=== PATIENT | female | born 1965 | race Caucasian/White ===

== ENCOUNTER → 2016-07-02 | Outpatient (CLI) | payer OTHER ==
--- NOTE | 2016-07-03 14:51 | MM ---
Reason for exam: screening (asymptomatic). Last mammogram was performed 1 year and 6 months ago. History: Patient is postmenopausal. Family history of breast cancer in paternal aunt at age 56. Physical Findings: A clinical breast exam by your physician is recommended on an annual basis and results should be correlated with mammographic findings. MG Screening Mammo w CAD Bilateral CC and MLO view(s) were taken. Prior study comparison: January 14, 2015, bilateral MG screening mammo w CAD. No significant changes when compared with prior studies. ASSESSMENT: Negative, BI-RAD 1 RECOMMENDATION: Routine screening mammogram of both breasts in 1 year.
== END | disposition home or self-care (01) ==
LOC: RADMAMWWP 14:30
PROVIDERS: ATTEND Family Medicine
DX: Z12.31 Encounter for screening mammogram for malignant neoplasm of breast (principal)

== ENCOUNTER → 2016-07-02 | Outpatient (CLI) | payer OTHER ==
[2016-07-02 13:22] LABS: Blood Urea Nitrogen 9 mg/dL (7-17); Non-African American GFR(MDRD) >60 (>60 ml/min/1.73 sqM)
--- NOTE | 2016-07-02 14:33 | CT ---
EXAMINATION TYPE: CT soft tissue neck w con DATE OF EXAM: 07/02/2016 2:19 PM COMPARISON: NONE HISTORY: Left sided neck mass x 3weeks CT DLP: 470.30 mGycm Automated exposure control for dose reduction was used. CONTRAST: CT scan of the neck is performed following with IV Contrast, patient injected with 100 mL of Omnipaqu e 300. Axial images are obtained, coronal and sagittal reformatted images are reviewed. FINDINGS: Airway: No gross abnormality seen. Parotid/submandibular glands: There is a 1.7 cm heterogeneous enhancing mass within the posterior ma rgin of the left parotid gland. No pathologic adjacent adenopathy Carotid/Vascular Structures: Mild atherosclerotic changes of the right moderate changes on the left a pproximately 60% stenosis. Osseous Structures: Degenerative change of the spine at levels C5-C7. Other: Thyroid enhances normally. Lung apices are clear. Oropharynx and nasopharynx are symmetric. Vi sualized intraorbital and intracranial structures are unremarkable. Shotty adenopathy throughout the soft tissues of neck. Vocal cords have a normal appearance. IMPRESSION: 1. There is a 1.7 cm heterogeneous enhancing mass posterior margin left parotid gland. Differential i nclude pleomorphic adenoma. Malignancy not excluded. 2. Atherosclerotic changes greater on the left with regard to the carotid artery. Consider follow-up ultrasound.
== END | disposition home or self-care (01) ==
LOC: RADCTMAIN 12:21
PROVIDERS: ATTEND Family Medicine
DX: I65.22 Occlusion and stenosis of left carotid artery (principal); R22.1 Localized swelling, mass and lump, neck
CPT/HCPCS: 82565; 84520; 70491; 36415; Q9967

== ENCOUNTER 2016-07-27 08:52 | Day surgery (SDC) | payer OTHER ==
[~2016-07-27 08:52] MED LIST: ALPRAZolam 0.5 MG TAB PO ONE; SODIUM BICARB 4% 5 ML VIAL (0.48 MEQ/ML) MISCELLANE PRN
[2016-07-27 10:04] VITALS: RESP 16; TEMP 98.1
[2016-07-27 10:48] VITALS: BP 151/88; PULSE 96
--- NOTE | 2016-07-27 11:48 | US ---
Ultrasound guided FNA left parotid mass CLINICAL HISTORY: Left parotid mass FINDINGS: The procedure was explained to the patient. The risks, complications, benefits and alternatives were discussed and any questions were answered. Informed consent was obtained. Patient was placed supin e on the ultrasound table and prepped and draped in the usual sterile fashion. Utilizing a 25 gauge needle, five passes were made into the left parotid mass. Patient was stable throughout the procedure. Pathology is pending. All elements of maximal barrier technique were utilized. IMPRESSION: 1. Successful ultrasound guided FNA left parotid mass
== END 2016-07-27 10:51 | disposition home or self-care (01) ==
LOC: RADPROMAIN 08:52
DX: R22.1 Localized swelling, mass and lump, neck (principal)
CPT/HCPCS: 10022; 76942; 88173; 88305

== ENCOUNTER → 2017-12-28 | Outpatient (CLI) | payer OTHER ==
[2017-12-28 16:50] LABS: Blood Urea Nitrogen 12 mg/dL (7-17)
--- NOTE | 2017-12-28 19:20 | CT ---
EXAMINATION TYPE: CT abdomen pelvis w con DATE OF EXAM: 12/28/2017 COMPARISON: 10/01/2015 HISTORY: RLQ pain CT DLP: 939.7 mGycm Automated exposure control for dose reduction was used. TECHNIQUE: Helical acquisition of images was performed from the lung bases through the pelvis. CONTRAST: Performed with Oral Contrast and with IV Contrast, patient injected with 100 mL of Isovue 3 00. FINDINGS: LUNG BASES: No significant abnormality is appreciated. LIVER/GB: No significant abnormality is appreciated. PANCREAS: No significant abnormality is seen. SPLEEN: No significant abnormality is seen. ADRENALS: No significant abnormality is seen. KIDNEYS: No significant abnormality is seen. FREE AIR: No free air is visualized. RETROPERITONEAL ADENOPATHY: None visualized REPRODUCTIVE ORGANS: No significant abnormality is seen URINARY BLADDER: No significant abnormality is seen. PELVIC ADENOPATHY: None visualized. OSSEOUS STRUCTURES: No significant abnormality is seen. BOWEL: No significant abnormality is seen. OTHER: Vasculature is unremarkable. Anterior abdominal wall musculature is intact. IMPRESSION: NO ACUTE PROCESS.
== END | disposition home or self-care (01) ==
LOC: RADCTMAIN 16:04
PROVIDERS: ATTEND Family Medicine
DX: R10.32 Left lower quadrant pain (principal); Z88.0 Allergy status to penicillin; Z88.1 Allergy status to other antibiotic agents; Z88.2 Allergy status to sulfonamides; Z88.3 Allergy status to other anti-infective agents; Z88.5 Allergy status to narcotic agent; Z88.8 Allergy status to other drugs, medicaments and biological substances
CPT/HCPCS: 82565; 84520; 74177; 36415; Q9967

== ENCOUNTER 2018-02-03 08:52 | Day surgery (SDC) | payer OTHER ==
[2018-02-01 15:34] VITALS: BMI 28.5
[~2018-02-03 08:52] MED LIST changes: -ALPRAZolam 0.5 MG TAB PO ONE; +LACTATED RINGERS 1,000 ML IV SCH; -SODIUM BICARB 4% 5 ML VIAL (0.48 MEQ/ML) MISCELLANE PRN
[2018-02-03 09:09] VITALS: TEMP 97.5
[2018-02-03] MEDS ORDERED: LIDOCAINE 1% 20 ML VIAL (10MG/ML) FOR IV START INTRADERMA ONE (09:11)
[2018-02-03] MEDS ORDERED: LACTATED RINGERS 1,000 ML IV ONE (09:12)
[2018-02-03] MEDS ORDERED: ONDANSETRON 4 MG/2 ML VIAL IVP ONE (09:15)
[2018-02-03 09:16] LABS: Glucose,Whole Blood 126 mg/dL (75-99)
[2018-02-03] MEDS ORDERED: PROPOFOL 10 MG/ML 20 ML VIAL IV ONE (10:04)
[2018-02-03] MEDS ORDERED: LIDOCAINE 1% INJ 10MG/ML (20 ML MDV) ONE (10:04)
[2018-02-03 10:19] VITALS: RESP 16
--- NOTE | 2018-02-03 10:20 | P.PCN ---
Date of Procedure: 02/03/18 Procedure(s) Performed: BRIEF HISTORY: Patient is a 52-year-old, pleasant, white female, scheduled for an upper endoscopy as a part of evaluation of epigastric pain for the last 1 minute duration. She has associated with nausea vomiting. She was started on Prilosec 20 mg daily with no help.. PROCEDURE PERFORMED: Esophagogastroduodenoscopy with biopsy. PREOPERATIVE DIAGNOSIS: chronic epigastric pain, nausea vomiting of one month duration. IV sedation per anesthesia. PROCEDURE: After informed consent was obtained, the patient was brought into the endoscopy unit. IV sedation was administered by Anesthesia under continuous monitoring. Initially the Olympus GIF-140 video endoscope was inserted into the mouth. Esophagus intubated without any difficulty. It was gradually advanced into the stomach and duodenum and carefully examined. The bulb and the second part of the duodenum appeared normal. The scope at this time was withdrawn to the stomach, adequately insufflated with air, and upon careful examination, mucosa of the antrum, had mild gastritis and biopsies were done from this area. body, cardia and the fundus appeared normal. The scope was then withdrawn into the esophagus. The GE junction was located at 39 cm from the incisors. The esophagus appeared normal. There were no erosions or ulcerations seen, biopsies were done from the distal esophagus and the patient tolerated the procedure well. IMPRESSION: 1. Mild antral gastritis. 2. No evidence of esophagitis or peptic ulcer disease. RECOMMENDATIONS: The findings of this examination were discussed with the patient as well as her family. She was advised to follow with the biopsy results. She will meantime she was advised to increase the Prilosec to 20 mg twice daily before meals and follow antireflux measures..
[2018-02-03 10:31] VITALS: BP 118/79; PULSE 68
== END 2018-02-03 11:24 | disposition home or self-care (01) ==
LOC: ORWHC2ENDO 08:52
PROVIDERS: ATTEND Internal Medicine Gastroenterology
DX: K29.50 Unspecified chronic gastritis without bleeding (principal); B96.81 Helicobacter pylori [H. pylori] as the cause of diseases classified elsewhere; K21.0 Gastro-esophageal reflux disease with esophagitis; J44.9 Chronic obstructive pulmonary disease, unspecified; M79.7 Fibromyalgia; Z79.899 Other long term (current) drug therapy; Z72.0 Tobacco use; Z88.5 Allergy status to narcotic agent; Z88.0 Allergy status to penicillin; Z88.2 Allergy status to sulfonamides; Z88.8 Allergy status to other drugs, medicaments and biological substances; Z88.1 Allergy status to other antibiotic agents; Z91.040 Latex allergy status; Z86.73 Personal history of transient ischemic attack (TIA), and cerebral infarction without residual deficits
CPT/HCPCS: 88305; 43239; J2405; J2001; J2704

== ENCOUNTER → 2018-02-07 | Outpatient (CLI) | payer OTHER ==
--- NOTE | 2018-02-07 17:50 | FL ---
EXAMINATION TYPE: FL barium enema w air contrast DATE OF EXAM: 02/07/2018 COMPARISON: NONE HISTORY: Constipation weight loss TECHNIQUE: A double air contrast barium enema study is performed. FINDINGS: Fire Hose Curer view of the abdomen shows overall non-obstructive bowel gas pattern. No persistent suspicious filling defects are evident. Air and contrast refluxed to appears to be the cecum. There is moderate residual postevacuation. Fluoroscopy time 3.29 minutes Images: 18. IMPRESSION: 1. No suspicious changes within the colon.
== END ==
LOC: RADFLMAIN 07:37
PROVIDERS: ATTEND Family Medicine
DX: K59.00 Constipation, unspecified (principal); R10.84 Generalized abdominal pain; Z88.5 Allergy status to narcotic agent; Z88.0 Allergy status to penicillin; Z88.2 Allergy status to sulfonamides; Z88.8 Allergy status to other drugs, medicaments and biological substances; Z88.1 Allergy status to other antibiotic agents; Z91.040 Latex allergy status
CPT/HCPCS: 74280

== ENCOUNTER 2018-06-02 10:29 | Inpatient (IN) | payer OTHER ==
[2018-06-02] MEDS ORDERED: VANCOMYCIN IV PER PHARMACY 1 EACH MISC MISCELLANE PRN (11:07)
[2018-06-02] MEDS ORDERED: CEFEPIME 2 GM in SODIUM CHLORIDE 0.9% 50 ML IVPB STA (11:12)
[2018-06-02] MEDS ORDERED: NALOXONE 0.4 MG/ML 1 ML VIAL IV PRN (11:27)
--- NOTE | 2018-06-02 11:27 | ED ---
Extremity Problem HPI - General Chief complaint: Extremity Problem,Nontraumatic Stated complaint: wound left great toe Time Seen by Provider: 06/02/18 10:41 Source: patient, RN notes reviewed Mode of arrival: ambulatory Limitations: no limitations - History of Present Illness Initial comments: 52-year-old female sent emergency Department chief complaint of left foot infection. Patient states that she's been dealing with this for a while. Patient has been going to the wound center and had it debrided once by Dr. Stanley. Patient was evaluated this morning he was found to have leukocytosis , increased swelling and discoloration. Patient was sent for admission and surgical evaluation. She is a known diabetic since 1998. Patient states her blood sugars have been labile. Patient reports no fevers or chills. She does admit to increased pain. Patient states she had x-ray which showed no evidence of osteomyelitis. - Related Data Home Medications Medication Instructions Recorded Confirmed Cyclobenzaprine [Flexeril] 10 mg PO TID PRN 08/21/14 06/02/18 Furosemide [Lasix] 40 mg PO DAILY 08/21/14 06/02/18 traZODone HCL [Desyrel] 50 mg PO HS PRN 08/21/14 06/02/18 Omeprazole [PriLOSEC] 20 mg PO AC-BRKFST 09/27/15 06/02/18 Albuterol Inhaler [Ventolin Hfa 1 - 2 puff INHALATION RT-Q6H PRN 02/01/18 Inhaler] Beclomethasone Dipropionate [Qvar 1 puff INHALATION RT-BID 02/01/18 06/02/18 40 mcg Redihaler] Ibuprofen 800 mg PO TID PRN 02/01/18 06/02/18 busPIRone HCl [Buspar] 5 mg PO TID 02/01/18 06/02/18 rOPINIRole HCL [Requip] 0.25 mg PO HS 02/01/18 06/02/18 risperiDONE [RisperDAL] 2 mg PO DAILY 02/01/18 06/02/18 Allergies Allergy/AdvReac Type Severity Reaction Status Date / Time atorvastatin [From Lipitor] Allergy Unknown Itching, Verified 06/02/18 09:50 Hives, Upset Stomach erythromycin base Allergy Wheezing Verified 06/02/18 09:50 latex Allergy Hives, Red Verified 06/02/18 09:50 Skin, Infections morphine Allergy Swelling, Verified 06/02/18 09:50 Red skin Penicillins Allergy Rash/Hives Verified 06/02/18 09:50 prednisone Allergy Swelling Verified 06/02/18 09:50 of Throat, Hives, Swollen Eyes Sulfa (Sulfonamide Allergy Swelling Verified 06/02/18 09:50 Antibiotics) of throat, Hives Review of Systems ROS Statement: Those systems with pertinent positive or pertinent negative responses have been documented in the HPI. ROS Other: All systems not noted in ROS Statement are negative. 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 History of Any Multi-Drug Resistant Organisms: None Reported Past Surgical History: Appendectomy, Section, Cholecystectomy, Hysterectomy Additional Past Surgical History / Comment(s): spleenectomy, parotid gland removed (tumor). Past Anesthesia/Blood Transfusion Reactions: Motion Sickness, Postoperative Nausea & Vomiting (PONV) Additional Past Anesthesia/Blood Transfusion Reaction / Comment(s): adopted Past Psychological History: No Psychological Hx Reported, Anxiety, Bipolar, Depression Smoking Status: Current some day smoker Past Alcohol Use History: Occasional Past Drug Use History: Marijuana - Past Family History Mother Family Medical History: Cancer Additional Family Medical History / Comment(s): RECTAL-COLON CANCER, UTERINE CANCER Father Family Medical History: Unable to Obtain Additional Family Medical History / Comment(s): adopted Sister(s) Family Medical History: Cancer Additional Family Medical History / Comment(s): HALF SISTER- LEUKEMIA AT 5 YRS OLD General Exam Limitations: no limitations General appearance: alert, in no apparent distress Head exam: Present: atraumatic, normocephalic, normal inspection Eye exam: Present: normal appearance, PERRL, EOMI. Absent: scleral icterus, conjunctival injection, periorbital swelling Respiratory exam: Present: normal lung sounds bilaterally. Absent: respiratory distress, wheezes, rales, rhonchi, stridor Cardiovascular Exam: Present: regular rate, normal rhythm, normal heart sounds. Absent: systolic murmur, diastolic murmur, rubs, gallop, clicks Extremities exam: Present: other (Left foot first digit there is tissue that is eschar, necrotic proximal to the nail moderate swelling and tenderness with palpation pulses are faint but confirmed with Doppler dorsal pedis and posterior tibialis) Skin exam: Present: warm, dry Course Vital Signs 06/02/18 10:37 Temperature 98.6 F Pulse Rate 84 Respiratory 18 Rate Blood Pressure 164/98 O2 Sat by Pulse 94 L Oximetry Medical Decision Making - Medical Decision Making 52-year-old female presented for toe infection. Patiently admitted for necrotic diabetic foot ulcer. She was placed on cefepime and vancomycin as she has ALLERGY to penicillin products. Patient has a leukocytosis at 20,000, lactic acid and blood cultures were added. Disposition Clinical Impression: Diabetic ulcer of toe, Leukocytosis Disposition: ADMITTED IP TO THIS HOSP Condition: Stable Referrals: Mohamud Galvez MD [Primary Care Provider] - 1-2 days
[2018-06-02] MEDS: ONDANSETRON 4 MG/2 ML VIAL IVP PRN (12:05)
[2018-06-02] MEDS: HYDROcodone/APAP 5-325MG 1 EACH TAB PO PRN ×3 (12:09→20:16)
[2018-06-02] MEDS: VANCOMYCIN 1,750 MG in SODIUM CHLORIDE 0.9% 500 ML 500 ML IVPB ONE ×2 (13:08→22:39)
[2018-06-02] MEDS: INSULIN ASPART 100 UNIT/ML 1 ML 10 ML VIAL SQ SCH ×3 (15:50→22:36)
[2018-06-02] MEDS ORDERED: CYCLOBENZAPRINE 10 MG TAB PO PRN (16:34)
[2018-06-02] MEDS ORDERED: INSULN ASP PRT/INSULIN ASPART 100 UNIT/ML 10 ML VIAL SQ SCH (17:30)
[2018-06-02 18:42] LABS: Glucose,Whole Blood 177 mg/dL (75-99)
[2018-06-02] MEDS: FLUTICASONE 44 MCG INHALER INHALATION SCH (19:20)
[2018-06-02 22:08] LABS: Glucose,Whole Blood 85 mg/dL (75-99)
[2018-06-02 22:09] LABS: Glucose,Whole Blood 85 mg/dL (75-99)
[2018-06-02 22:10] LABS: Glucose,Whole Blood 85 mg/dL (75-99)
[2018-06-02 22:13] LABS: Glucose,Whole Blood 85 mg/dL (75-99)
[2018-06-02 22:15] LABS: Glucose,Whole Blood 85 mg/dL (75-99)
[2018-06-02 22:17] LABS: Glucose,Whole Blood 85 mg/dL (75-99)
[2018-06-02 22:18] LABS: Glucose,Whole Blood 85 mg/dL (75-99)
[2018-06-02] MEDS: VANCOMYCIN 1,500 MG in SODIUM CHLORIDE 0.9% 250 ML IVPB SCH (22:43)
[2018-06-02] MEDS: IBUPROFEN 800 MG TAB PO PRN (22:43)
[2018-06-02] MEDS: traZODone HCL 50 MG TAB PO PRN (22:49)
[2018-06-02] MEDS: busPIRone HCl 5 MG TAB PO SCH (23:21)
[2018-06-03] MEDS: VANCOMYCIN 1,500 MG in SODIUM CHLORIDE 0.9% 250 ML IVPB SCH ×3 (06:15→21:02)
[2018-06-03] MEDS: HYDROcodone/APAP 5-325MG 1 EACH TAB PO PRN ×4 (06:20→21:06)
[2018-06-03] MEDS: ONDANSETRON 4 MG/2 ML VIAL IVP PRN ×2 (06:20→17:32)
[2018-06-03] MEDS: FLUTICASONE 44 MCG INHALER INHALATION SCH ×2 (07:24→19:16)
[2018-06-03] MEDS: ALBUTEROL NEBULIZED 2.5 MG/3 ML INHALATION PRN ×2 (07:27→19:16)
[2018-06-03] MEDS ORDERED: INSULN ASP PRT/INSULIN ASPART 100 UNIT/ML 10 ML VIAL SQ SCH (07:30)
[2018-06-03] MEDS: PANTOPRAZOLE 40 MG TABLET PO SCH (08:56)
[2018-06-03] MEDS: FUROSEMIDE 40 MG TAB PO SCH (08:56)
[2018-06-03] MEDS: INSULIN ASPART 100 UNIT/ML 1 ML 10 ML VIAL SQ SCH ×4 (08:56→21:04)
[2018-06-03] MEDS: risperiDONE 2 MG TAB PO SCH (08:56)
[2018-06-03] MEDS: ATORVASTATIN 80 MG TAB PO SCH (08:56)
[2018-06-03] MEDS: busPIRone HCl 5 MG TAB PO SCH ×3 (09:41→21:03)
[2018-06-03 11:02] VITALS: BMI 31.1
[2018-06-03 12:52] LABS: Glucose,Whole Blood 217 mg/dL (75-99)
[2018-06-03] MEDS: clonazePAM 0.5 MG TAB PO PRN (17:28)
[2018-06-03 17:42] LABS: Glucose,Whole Blood 149 mg/dL (75-99)
[2018-06-03] MEDS ORDERED: VANCOMYCIN TROUGH DUE 1 EACH MISC MISCELLANE ONE (19:00)
[2018-06-03] MEDS: traZODone HCL 50 MG TAB PO PRN (21:03)
[2018-06-04 00:49] LABS: Glucose,Whole Blood 137 mg/dL (75-99)
[2018-06-04 00:49] LABS: Glucose,Whole Blood 211 mg/dL (75-99)
[2018-06-04] MEDS: VANCOMYCIN 1,500 MG in SODIUM CHLORIDE 0.9% 250 ML IVPB SCH ×2 (04:53→13:17)
[2018-06-04] MEDS: HYDROcodone/APAP 5-325MG 1 EACH TAB PO PRN ×3 (04:57→20:35)
[2018-06-04 07:55] LABS: Glucose,Whole Blood 180 mg/dL (75-99)
[2018-06-04] MEDS: INSULIN ASPART 100 UNIT/ML 1 ML 10 ML VIAL SQ SCH ×4 (08:13→22:35)
[2018-06-04] MEDS: FUROSEMIDE 40 MG TAB PO SCH (08:14)
[2018-06-04] MEDS: ATORVASTATIN 80 MG TAB PO SCH (08:14)
[2018-06-04] MEDS: busPIRone HCl 5 MG TAB PO SCH ×3 (08:14→20:32)
[2018-06-04] MEDS: PANTOPRAZOLE 40 MG TABLET PO SCH (08:14)
[2018-06-04] MEDS: risperiDONE 2 MG TAB PO SCH (08:15)
[2018-06-04 08:44] LABS: Anion Gap 4 mmol/L; Blood Urea Nitrogen 11 mg/dL (7-17); Calcium 8.6 mg/dL (8.4-10.2); Carbon Dioxide 33 mmol/L (22-30); Chloride 104 mmol/L (98-107); Glucose 174 mg/dL (74-99); Potassium 4.7 mmol/L (3.5-5.1); Sodium 141 mmol/L (137-145)
[2018-06-04 08:51] LABS: Basophils # (A) 0.1 k/uL (0-0.2); Basophils % (A) 1 %; Eosinophils # (A) 0.5 k/uL (0-0.7); Eosinophils % (A) 2 %; HCT 37.3 % (34.0-46.0); Hypochromasia Slight; Lymphocytes % (A) 34 %; MCH 28.2 pg (25.0-35.0); MCHC 31.2 g/dL (31.0-37.0); MCV 90.5 fL (80.0-100.0); Mean Platelet Volume 7.6; Monocytes # (A) 1.4 k/uL (0-1.0); Monocytes % (A) 7 %; Neutrophils # (A) 9.8 k/uL (1.3-7.7); Neutrophils % (A) 54 %; Platelet Count 404 k/uL (150-450); RBC 4.12 m/uL (3.80-5.40); RDW 13.9 % (11.5-15.5); WBC 18.3 k/uL (3.8-10.6)
[2018-06-04] MEDS: ONDANSETRON 4 MG/2 ML VIAL IVP PRN (09:09)
[2018-06-04 09:11] LABS: Lymphocytes # (A) 6.2 k/uL (1.0-4.8)
[2018-06-04 09:12] LABS: HGB 11.6 gm/dL (11.4-16.0)
[2018-06-04] MEDS: clonazePAM 0.5 MG TAB PO PRN ×2 (09:16→17:00)
--- NOTE | 2018-06-04 10:04 | P.GSCN ---
History of Present Illness Consult date: 06/04/18 Reason for Consult: Diabetic ulcer left great toe Requesting physician: Mohamud Galvez History of present illness: This is a 52-year-old diabetic who continues to smoke in spite of numerous counseling sessions to the contrary. For about the last week she has had progressive ulceration of the left great toe. She denies fever or chills. Review of Systems All systems: negative - Constitutional Denies fever, Denies weight loss - EENT Eyes: denies blurred vision Ears, nose, mouth and throat: Denies dysphagia - Cardiovascular Reports decreased exercise tolerance, Reports dyspnea on exertion, Denies chest pain, Denies orthopnea, Denies paroxysmal nocturnal dyspnea, Denies shortness of breath - Respiratory Reports cough, Denies hemoptysis - Gastrointestinal Reports as per HPI - Genitourinary Genitourinary: Denies dysuria, Denies hematuria - Integumentary Denies rash, Denies unusual bruising - Neurological Neurologic Comment(s): Diabetic neuropathy Denies headaches, Denies syncope - Hematologic/Lymphatic Denies easy bleeding, Denies easy bruising - Allergic/Immunologic Denies anaphylaxis, Denies angioedema, Denies urticaria Past Medical History Past Medical History: COPD, CVA/TIA, Diabetes Mellitus, Fibromyalgia, GERD/ Reflux, Osteoarthritis (OA) Additional Past Medical History / Comment(s): Recent H pylori/gastritis, IDDM type II, current L foot great toe diabetic ulcer, bilateral feet/hand neuropathy , chronic back pain, RLS, bilateral carpal tunnel syndrome, chronic bronchitis, TIAs x 3, hiatal hernia. History of Any Multi-Drug Resistant Organisms: None Reported Past Surgical History: Appendectomy, Section, Cholecystectomy, Hysterectomy Additional Past Surgical History / Comment(s): L great toe debridements, spleenectomy d/t hemangioma, L paratid gland tumor-removed, EGD/colonoscopy, bilateral cataract removals/lens implants. Past Anesthesia/Blood Transfusion Reactions: Postoperative Nausea & Vomiting ( PONV) Additional Past Anesthesia/Blood Transfusion Reaction / Comm: Pt is adopted Smoking Status: Current every day smoker - Past Family History Mother Family Medical History: Cancer Additional Family Medical History / Comment(s): RECTAL-COLON CANCER, UTERINE CANCER Father Family Medical History: Unable to Obtain Additional Family Medical History / Comment(s): Pt is adopted Sister(s) Family Medical History: Cancer Additional Family Medical History / Comment(s): HALF SISTER- LEUKEMIA AT 5 YRS OLD Medications and Allergies Home Medications Medication Instructions Recorded Confirmed Type Cyclobenzaprine [Flexeril] 10 mg PO TID PRN 08/21/14 06/02/18 History Furosemide [Lasix] 40 mg PO DAILY 08/21/14 06/02/18 History traZODone HCL [Desyrel] 50 mg PO HS PRN 08/21/14 06/02/18 History Omeprazole [PriLOSEC] 20 mg PO AC-BRKFST 09/27/15 06/02/18 History Albuterol Inhaler [Ventolin Hfa 1 - 2 puff INHALATION RT-Q6H PRN 02/01/18 History Inhaler] Beclomethasone Dipropionate [Qvar 1 puff INHALATION RT-BID 02/01/18 06/02/18 History 40 mcg Redihaler] Ibuprofen 800 mg PO TID PRN 02/01/18 06/02/18 History busPIRone HCl [Buspar] 5 mg PO TID 02/01/18 06/02/18 History rOPINIRole HCL [Requip] 0.25 mg PO HS 02/01/18 06/02/18 History risperiDONE [RisperDAL] 2 mg PO DAILY 02/01/18 06/02/18 History Atorvastatin [Lipitor] 80 mg PO DAILY 06/02/18 06/02/18 History Insulin NPL/Insulin Lispro 85 unit SQ AC-SUPPER 06/02/18 06/02/18 History [humaLOG MIX 75-25 VIAL] Insulin NPL/Insulin Lispro 170 unit SQ QAM 06/02/18 06/02/18 History [humaLOG MIX 75-25 VIAL] Allergies Allergy/AdvReac Type Severity Reaction Status Date / Time atorvastatin [From Lipitor] Allergy Unknown Itching, Verified 06/02/18 09:50 Hives, Upset Stomach erythromycin base Allergy Wheezing Verified 06/02/18 09:50 latex Allergy Hives, Red Verified 06/02/18 09:50 Skin, Infections morphine Allergy Swelling, Verified 06/02/18 09:50 Red skin Penicillins Allergy Rash/Hives Verified 06/02/18 09:50 prednisone Allergy Swelling Verified 06/02/18 09:50 of Throat, Hives, Swollen Eyes Sulfa (Sulfonamide Allergy Swelling Verified 06/02/18 09:50 Antibiotics) of throat, Hives Surgical - Exam Osteopathic Statement: *. No significant issues noted on an osteopathic structural exam other than those noted in the History and Physical/Consult. Vital Signs Temp Pulse Resp BP Pulse Ox 98.6 F 84 18 164/98 94 L 06/02/18 10:37 06/02/18 10:37 06/02/18 10:37 06/02/18 10:37 06/02/18 10:37 - General well developed, well nourished, no distress - Eyes normal ocular movement, no icteric - ENT no hearing loss, no congestion - Neck no masses, trachea midline - Respiratory normal expansion, normal respiratory effort bilateral: rales - Cardiovascular Rhythm: regular - Abdomen Abdomen: soft, non tender, no guarding, no rigid, no rebound - Integumentary Contiguous ulceration on the dorsum of the left great toe. It encompasses the dorsum lateral and medial aspects of the toe for a full dimension of about 1.5 x 3.5 cm. no rash, no abnormal pigmentation - Neurologic no disoriented, no combative - Musculoskeletal normal gait, normal posture - Psychiatric oriented to time, oriented to person, oriented to place, speech is normal, memory intact Patient has bounding bilateral posterior tibial pulses Results - Labs 06/04/18 08:11 06/04/18 08:11 Abnormal Lab Results - Last 24 Hours (Table) 06/03/18 06/03/18 06/03/18 Range/Units 07:22 12:29 17:21 WBC (3.8-10.6) k/uL Neutrophils # (1.3-7.7) k/uL Lymphocytes # (1.0-4.8) k/uL Monocytes # (0-1.0) k/uL Carbon Dioxide (22-30) mmol/L Creatinine (0.52-1.04) mg/dL Glucose (74-99) mg/dL POC Glucose (mg/dL) 137 H 217 H 149 H (75-99) mg/dL 06/03/18 06/04/18 06/04/18 Range/Units 20:43 07:08 08:11 WBC (3.8-10.6) k/uL Neutrophils # (1.3-7.7) k/uL Lymphocytes # (1.0-4.8) k/uL Monocytes # (0-1.0) k/uL Carbon Dioxide 33 H (22-30) mmol/L Creatinine 0.45 L (0.52-1.04) mg/dL Glucose 174 H (74-99) mg/dL POC Glucose (mg/dL) 211 H 180 H (75-99) mg/dL 06/04/18 Range/Units 08:11 WBC 18.3 H (3.8-10.6) k/uL Neutrophils # 9.8 H (1.3-7.7) k/uL Lymphocytes # 6.2 H (1.0-4.8) k/uL Monocytes # 1.4 H (0-1.0) k/uL Carbon Dioxide (22-30) mmol/L Creatinine (0.52-1.04) mg/dL Glucose (74-99) mg/dL POC Glucose (mg/dL) (75-99) mg/dL Microbiology - Last 24 Hours (Table) 06/02/18 11:54 Blood Culture - Preliminary Blood No Growth after 24 hours Diabetes panel 06/04/18 Range/Units 08:11 Sodium 141 (137-145) mmol/L Potassium 4.7 (3.5-5.1) mmol/L Chloride 104 (98-107) mmol/L Carbon Dioxide 33 H (22-30) mmol/L BUN 11 (7-17) mg/dL Creatinine 0.45 L (0.52-1.04) mg/dL Glucose 174 H (74-99) mg/dL Calcium 8.6 (8.4-10.2) mg/dL Calcium panel 06/04/18 Range/Units 08:11 Calcium 8.6 (8.4-10.2) mg/dL Pituitary panel 06/04/18 Range/Units 08:11 Sodium 141 (137-145) mmol/L Potassium 4.7 (3.5-5.1) mmol/L Chloride 104 (98-107) mmol/L Carbon Dioxide 33 H (22-30) mmol/L BUN 11 (7-17) mg/dL Creatinine 0.45 L (0.52-1.04) mg/dL Glucose 174 H (74-99) mg/dL Calcium 8.6 (8.4-10.2) mg/dL Adrenal panel 06/04/18 Range/Units 08:11 Sodium 141 (137-145) mmol/L Potassium 4.7 (3.5-5.1) mmol/L Chloride 104 (98-107) mmol/L Carbon Dioxide 33 H (22-30) mmol/L BUN 11 (7-17) mg/dL Creatinine 0.45 L (0.52-1.04) mg/dL Glucose 174 H (74-99) mg/dL Calcium 8.6 (8.4-10.2) mg/dL Assessment and Plan (1) Diabetic ulcer of left foot associated with diabetes mellitus due to underlying condition, with fat layer exposed Current Visit: Yes Status: Acute Code(s): E08.621 - DIABETES MELLITUS DUE TO UNDERLYING CONDITION W FOOT ULCER; L97.522 - NON-PRS CHRONIC ULCER OTH PRT LEFT FOOT W FAT LAYER EXPOSED SNOMED Code(s): 118268855 Plan: I discussed in detail with the patient the current options. For now I would recommend we simply protect it and possibly use some protective absorptive silver. We will allow the area to define itself since it is, at this time, a dry intact scab. There is a little discoloration of the toe otherwise. I discussed the potential for loss of the toe or even the foot without proper tension. I will follow her as an outpatient in the wound center. I will defer antibiotics to internal medicine. Once the toe was declared itself we will decide whether to continue with ongoing wound therapy or to consider amputation of the toe itself. Even with pulses we will get Doppler studies. It is unlikely however that there is any vascular intervention to be entertained. I again discussed with her the severe ramifications of continuing to ignore her need for risk factor modification.
[2018-06-04] MEDS: FLUTICASONE 44 MCG INHALER INHALATION SCH ×2 (10:29→21:38)
[2018-06-04 10:35] LABS: ALT 39 U/L (9-52); AST 21 U/L (14-36); Albumin 3.3 g/dL (3.5-5.0); Alkaline Phosphatase 73 U/L (38-126); Total Bilirubin 0.4 mg/dL (0.2-1.3); Total Protein 5.9 g/dL (6.3-8.2)
--- NOTE | 2018-06-04 10:41 | XR ---
EXAMINATION TYPE: XR chest 2V DATE OF EXAM: 06/04/2018 HISTORY: SOB. REFERENCE: Previous study dated 08/21/2014. FINDINGS: There is some atelectasis at the right lung base. There is atelectasis or infiltrate at the left lung base. The heart is not enlarged. I could not exclude a tiny left-sided effusion. IMPRESSION: 1. BIBASILAR AIRSPACE DISEASE, WORSE ON THE LEFT THAN THE RIGHT. 2. I COULD NOT EXCLUDE A SMALL LEFT EFFUSION.
[2018-06-04 12:06] LABS: Glucose,Whole Blood 274 mg/dL (75-99)
[2018-06-04] MEDS: IBUPROFEN 800 MG TAB PO PRN ×2 (13:50→20:32)
--- NOTE | 2018-06-04 16:02 | HP ---
HISTORY AND PHYSICAL CHIEF COMPLAINT: Redness, pain, swelling and infection in the left great toe. HISTORY OF PRESENT ILLNESS: This is another admission for this 52-year-old white female, diabetic. She is very noncompliant. Sugars are not in control. She started to have pain, swelling and then developed infection in the left great toe and came to the emergency room. There is question whether or not there is involvement in bone or joint. REVIEW OF SYSTEMS: She has had some discomfort. Otherwise, she has had no problems of late. She has had no change in vision or hearing, shortness of breath, cough, hemoptysis, chest pain, palpitations, heart disease, orthopnea, PND, abdominal pain, nausea, vomiting, hematemesis, melena, hematochezia, jaundice, hepatitis, pancreatitis, renal failure, hematuria, dysuria, etc. Past medical history, family history and personal and social history is unremarkable except for her diabetic history and hypertension. ALLERGIES: ERYTHROMYCIN, LIPITOR, SULFA, LATEX, MORPHINE, PENICILLIN. CURRENT MEDICATIONS: Atorvastatin 80 mg h.s., Risperdal 2 mg once a day, omeprazole 20 mg once a day, MiraLAX powder, Lasix 40 mg once a day, aspirin 325 once a day, cyclobenzaprine 10 mg t.i.d. p.r.n., Motrin 800 mg q.i.d. p.r.n., ropinirole 0.25 h.s., buspirone 5 mg t.i.d. p.r.n., bupropion 150 mg twice a day, Qvar 40 one puff twice a day, Ventolin HFA 2 puffs q.i.d. p.r.n., trazodone 50 mg for sleep, Fiorinal p.r.n. headache, Reglan 10 mg 4 times a day, lansoprazole 30 mg twice a day, Klonopin 0.5 t.i.d. p.r.n., Vicodin 10 q.4h p.r.n., metformin 500 mg twice a day, lisinopril 40 once a day, Humalog 75/25 170 units in the morning and 85 at night, albuterol MDI, Lomotil p.r.n., and vitamin D. The remainder of her history is unremarkable. She does smoke. She does not drink. PHYSICAL EXAM: Blood pressure 130/80, pulse 70, respirations 14, she is afebrile. In general she appeared to be well developed, well nourished, no acute distress. Skin color is normal. Skin is warm, dry. Lymph nodes not enlarged. Head, ears, eyes, nose, mouth, and throat were normal. Neck veins not distended. Thyroid is not enlarged. Chest is clear. Cardiac exam is normal. The. Abdomen is soft, nontender without any masses or visceromegaly. Extremities are normal except for the left great toe where there is a cellulitis. There is no keila gangrene. Pulses in the legs were diminished. Neurologically she is intact. She is admitted to the hospital. DIAGNOSES: 1. Cellulitis of the left great toe. 2. Rule out osteomyelitis. 3. Probable small-vessel disease related to diabetes. 4. Rule out peripheral vascular occlusive disease. 5. Uncontrolled diabetes mellitus. PLAN: 1. Bed rest. 2. IV fluids. 3. IV antibiotics. 4. Elevate. 5. Consult with vascular surgery. MMODL / IJN: [id number] /
--- NOTE | 2018-06-04 16:32 | PN ---
PROGRESS NOTE DATE OF SERVICE: 06/03/2018 CHIEF COMPLAINT: Cellulitis in the left great toe with uncontrolled diabetes and possible osteomyelitis. HISTORY OF PRESENT ILLNESS: This lady's toe is just about the same. She is on antibiotics. It is quite uncomfortable. PHYSICAL EXAM: There is no keila ischemia in the toe and there is no significant drainage. IMPRESSION: 1. Cellulitis of the left great toe. 2. Diabetic ulcer of the left great toe. 3. Rule out osteomyelitis. 4. Continue antibiotics. 5. Continue efforts to control diabetes. MMODL / IJN: [id number] /
--- NOTE | 2018-06-04 16:56 | PN ---
PROGRESS NOTE Left great toe cellulitis. HISTORY OF PRESENT ILLNESS: This lady's toe was a little bit better. She is feeling better. She has been seen by Vascular Surgery. PHYSICAL EXAMINATION: There has been little change in the toe. It is slightly less swollen. IMPRESSION: Cellulitis, left great toe. PLAN: Continue with IV fluids, elevation and IV antibiotics. MMODL / IJN: [id number] /
[2018-06-04 18:10] LABS: Glucose,Whole Blood 205 mg/dL (75-99)
[2018-06-04 20:28] LABS: Hemoglobin A1C 7.9 % (4.0-6.0)
[2018-06-04] MEDS: traZODone HCL 50 MG TAB PO PRN (20:38)
[2018-06-04] MEDS: VANCOMYCIN 1,250 MG in SODIUM CHLORIDE 0.9% 250 ML IVPB SCH (20:38)
[2018-06-04 21:13] LABS: Glucose,Whole Blood 138 mg/dL (75-99)
[2018-06-05] MEDS: VANCOMYCIN 1,250 MG in SODIUM CHLORIDE 0.9% 250 ML IVPB SCH ×2 (04:35→12:59)
[2018-06-05] MEDS: HYDROcodone/APAP 5-325MG 1 EACH TAB PO PRN ×3 (05:08→13:27)
[2018-06-05 08:05] VITALS: RESP 16
[2018-06-05] MEDS: INSULIN ASPART 100 UNIT/ML 1 ML 10 ML VIAL SQ SCH ×2 (08:22→13:00)
[2018-06-05] MEDS: PANTOPRAZOLE 40 MG TABLET PO SCH (08:23)
[2018-06-05] MEDS: ATORVASTATIN 80 MG TAB PO SCH (08:23)
[2018-06-05] MEDS: busPIRone HCl 5 MG TAB PO SCH (08:23)
[2018-06-05] MEDS: risperiDONE 2 MG TAB PO SCH (08:24)
[2018-06-05] MEDS: clonazePAM 0.5 MG TAB PO PRN (08:24)
[2018-06-05] MEDS: FUROSEMIDE 40 MG TAB PO SCH (08:24)
[2018-06-05] MEDS: FLUTICASONE 44 MCG INHALER INHALATION SCH (10:37)
[2018-06-05 11:42] LABS: Glucose,Whole Blood 173 mg/dL (75-99)
[2018-06-05 13:18] LABS: Glucose,Whole Blood 198 mg/dL (75-99)
[2018-06-05] MEDS: ONDANSETRON 4 MG/2 ML VIAL IVP PRN (13:27)
[2018-06-05 15:35] VITALS: BP 127/71; PULSE 76; TEMP 98.3
[2018-06-05] MEDS ORDERED: CLINDAMYCIN 150 MG CAP PO SCH (16:00)
[2018-06-05] MEDS ORDERED: INSULIN ASPART 100 UNIT/ML 1 ML 10 ML VIAL SQ SCH (17:30)
[2018-06-06] MEDS ORDERED: VANCOMYCIN TROUGH DUE 1 EACH MISC MISCELLANE ONE (03:00)
--- NOTE | 2018-06-07 05:46 | DS ---
DISCHARGE SUMMARY DATE OF SERVICE: 06/05/2018 CHIEF COMPLAINT: Ulcer and cellulitis of left great toe. HISTORY OF PRESENT ILLNESS AND PHYSICAL EXAM: Details of this lady's history and physical can be found in the initial workup. LABORATORY STUDIES: While she was in a hospital she had laboratory studies, details of which can be found in the laboratory section of her chart. COURSE IN HOSPITAL: After admission she was placed on bedrest, started on intravenous fluids and IV antibiotics with elevation. She was seen by Vascular Surgery who recommended that she be on antibiotics and local wound care with elevation for a period of time to determine whether or not any or all of the toe will remain viable. It was felt that she could go home on the and she will go home on local wound care and antibiotics and she will be followed by home care nursing. FINAL DIAGNOSES: 1. Cellulitis and diabetic ulcer of the left great toe. 2. Poorly-controlled insulin-dependent diabetes mellitus. OPERATIONS: None. CONSULTATIONS: Vascular Surgery. She is improved. MMODL / IJN: [id number] /
== END 2018-06-05 15:18 | disposition home health service (06) | DRG 639 ==
LOC: EC 10:29 → 3NMEDONC 11:53 → 4MS4W 15:15
PROVIDERS: ADMIT Family Medicine; ATTEND Family Medicine
DX: E11.621 Type 2 diabetes mellitus with foot ulcer (principal); L97.522 Non-pressure chronic ulcer of other part of left foot with fat layer exposed; E11.65 Type 2 diabetes mellitus with hyperglycemia; Z71.6 Tobacco abuse counseling; F17.210 Nicotine dependence, cigarettes, uncomplicated; G25.81 Restless legs syndrome; J44.9 Chronic obstructive pulmonary disease, unspecified; K21.9 Gastro-esophageal reflux disease without esophagitis; L03.032 Cellulitis of left toe; M79.7 Fibromyalgia; Z79.4 Long term (current) use of insulin; Z79.82 Long term (current) use of aspirin; Z79.899 Other long term (current) drug therapy; Z80.0 Family history of malignant neoplasm of digestive organs; Z80.49 Family history of malignant neoplasm of other genital organs; Z80.6 Family history of leukemia; Z86.73 Personal history of transient ischemic attack (TIA), and cerebral infarction without residual deficits; Z88.0 Allergy status to penicillin; Z90.710 Acquired absence of both cervix and uterus; Z98.42 Cataract extraction status, left eye; Z98.41 Cataract extraction status, right eye; Z96.1 Presence of intraocular lens; G56.03 Carpal tunnel syndrome, bilateral upper limbs; K44.9 Diaphragmatic hernia without obstruction or gangrene; M54.9 Dorsalgia, unspecified; G89.29 Other chronic pain; Z88.5 Allergy status to narcotic agent; Z88.2 Allergy status to sulfonamides; Z88.8 Allergy status to other drugs, medicaments and biological substances; Z88.1 Allergy status to other antibiotic agents; Z91.040 Latex allergy status; Z91.19 Patient's noncompliance with other medical treatment and regimen; E11.40 Type 2 diabetes mellitus with diabetic neuropathy, unspecified; E11.51 Type 2 diabetes mellitus with diabetic peripheral angiopathy without gangrene
CPT/HCPCS: 71046; 80053; 80202; 83036; 83605; 85025; 87040; 94640; 96365; 96366; 96368; 96375; 99284

== ENCOUNTER → 2018-06-02 | Outpatient (CLI) | payer OTHER ==
--- NOTE | 2018-06-02 07:43 | XR ---
EXAMINATION TYPE: XR toes LT DATE OF EXAM: 06/02/2018 COMPARISON: NONE HISTORY: Diabetic foot ulcer, pain and swelling. TECHNIQUE: 2 views left first toe were acquired. FINDINGS: No acute fracture or dislocation is seen. No suspicious cortical destruction or periosteal reaction is noted. Osseous structures are somewhat demineralized. Mild narrowing at first interphalan geal joint is noted. Mild diffuse soft tissue swelling is present. IMPRESSION: As above, no convincing radiographic evidence for acute osteomyelitis.
--- NOTE | 2018-06-02 10:08 | P.WNDSOAP ---
Subjective Progress Note Date: 06/02/18 This is a pleasant 72-year-old white female comes to the wound care center with a dorsal left great toe ulcer. She reports the telemetry been discolored for several weeks, and then one day she took off her sandals and found the wound there. She called made appointment here she is a previous patient of this facility. She has been diabetic since 1998. Her primary care physician is Dr. Galvez. She has just been using and nonstick dressing overlying that at home. Patient presents to the wound center with worsening pain of her left great toe. She had an x-ray this morning it was essentially normal. Laboratory studies, however show her white blood cell count is 20,000 this morning. She reports her glucose is been significantly elevated as well. Objective - Exam Wound Clinic Measurements Start: 05/26/18 08: 11 Freq: Status: Active Protocol: Document 05/26/18 08:44 CAR (Rec: 05/26/18 08:44 CAR [id number]) Wound Clinic Measurements Wound Information Left Toe, Great Number 2 Length/cm 1 Width/cm 4 Depth/cm (cm) 0.1 Clustered Wound/Ulcer No Tunneling No Query Text:*If yes, specify position:_o' clock Undermining No Epithelialization None Granulation Amount Medium 34-66% Granulation Quality Red Necrosis Amount Medium 34-66% Necrosis Type Adherent Slough Stucture Exposed None Limited to Skin Breakdown Wall left great toe is not erythematous, and is fluctuant with purulent discharge upon palpitation. She is in extreme pain. The pain radiates upper leg. There is no significant ecchymosis or edema noted. - Labs Labs: Cultures show staph aureus with multiple susceptibilities Assessment and Plan (1) Diabetic ulcer of toe Current Visit: No Status: Acute Code(s): E11.621 - TYPE 2 DIABETES MELLITUS WITH FOOT ULCER; L97.509 - NON-PRESSURE CHRONIC ULCER OTH PRT UNSP FOOT W UNSP SEVERITY SNOMED Code(s): 99279805 (2) Cellulitis and abscess of toe of left foot Current Visit: Yes Status: Acute Code(s): L03.032 - CELLULITIS OF LEFT TOE; L02.612 - CUTANEOUS ABSCESS OF LEFT FOOT SNOMED Code(s): 034121940 Plan: Due to her significant pain, and obvious need for debridement, I will send this patient emergency room for further evaluation. At minimum she would benefit from IV antibiotics, and operating room or bedside debridement with more significant anesthesia that I can provide here in the wound center. Her case was discussed with the ER physician, Dr. Long. He will contact Dr. Galvez should she need admission.
== END | disposition home or self-care (01) ==
LOC: RADXRMAIN 07:23
PROVIDERS: ATTEND Family Medicine
DX: E11.621 Type 2 diabetes mellitus with foot ulcer (principal); L97.529 Non-pressure chronic ulcer of other part of left foot with unspecified severity

== ENCOUNTER → 2018-06-15 | Outpatient (CLI) | payer OTHER ==
--- NOTE | 2018-06-15 15:19 | NM ---
EXAMINATION TYPE: NM bone 3 phase DATE OF EXAM: 06/15/2018 COMPARISON: Left first toe x-ray June 02, 2018. HISTORY: Osteomyelitis per order. Open sore left great toe for 3 weeks with history of diabetes. Triple phase bone scintigraphy was performed following the injection of 26.5 mCi Tc 99m MDP. Immedia te images and 5.5 hours post injection images acquired. Imaging is of the bilateral ankles and feet FINDINGS: Dynamic arterial and soft tissue phase images show increased radiotracer uptake in the left ankle and foot versus opposite right side with more prominent uptake at level of clinical concern left first t oe. Delayed phase images show persistent increased uptake at this level involving the first distal ph alanx diffusely. IMPRESSION: Three-phase radiotracer uptake is consistent with acute osteomyelitis involving the first distal phalanx diffusely.
== END | disposition home or self-care (01) ==
LOC: RADNMMAIN 06:47
PROVIDERS: ATTEND Internal Medicine Infectious Disease
DX: R93.7 Abnormal findings on diagnostic imaging of other parts of musculoskeletal system (principal); E11.621 Type 2 diabetes mellitus with foot ulcer
CPT/HCPCS: 78315; A9503

== ENCOUNTER → 2018-07-28 | Outpatient (CLI) | payer OTHER ==
--- NOTE | 2018-07-28 13:41 | US ---
LOWER EXTREMITY VENOUS INSUFFICIENCY SIDE PERFORMED: Bilateral 1) Color flow is present and patency is documented in the following vessels. No DVT or SVT is noted . EIV Common Femoral Vein Deep Femoral Vein Femoral Vein Popliteal Vein Proximal Calf Veins Greater Saph Vein 2) There is venous reflux noted at the following venous levels: None No insufficiency noted. IMPRESSION: No insufficiency or DVT noted.
--- NOTE | 2018-08-03 10:12 | P.ARTDOP ---
Arterial Doppler LOWER EXTREMITY ARTERIAL DOPPLER: DATE OF SERVICE: 07/28/2018 Reason for study: Left foot ulcer. Doppler waveforms: Multiphasic bilaterally throughout. Pulse volume recording: Normal configuration including the toe on the right. Pressure gradients: None. Ankle-brachial indices: Greater than 1 bilaterally. Toe pressures: 86 on the right, not done on the left Impression: Normal study.
== END ==
LOC: RADUSWWP 12:10
PROVIDERS: ATTEND Family Medicine
DX: M79.605 Pain in left leg (principal)
CPT/HCPCS: 93923; 93970

== ENCOUNTER → 2018-08-31 | Outpatient (CLI) | payer OTHER ==
[2018-08-31 15:03] LABS: HCT 45.3 % (34.0-46.0); HGB 14.5 gm/dL (11.4-16.0); MCH 29.1 pg (25.0-35.0); MCHC 32.1 g/dL (31.0-37.0); MCV 90.6 fL (80.0-100.0); Mean Platelet Volume 7.7; Platelet Count 442 k/uL (150-450); WBC 22.2 k/uL (3.8-10.6)
[2018-08-31 18:38] LABS: Anion Gap 6.5 mmol/L (4.00-12.00); C Reactive Protein 1.6 mg/dL (0.0-0.8); Calcium 9.3 mg/dL (8.7-10.3); Carbon Dioxide 26.5 mmol/L (21.6-31.8); Potassium 4.3 mmol/L (3.5-5.5)
[2018-08-31 20:10] LABS: Erythrocyte Sedimentation Rate 14 mm/hr (0-20)
== END | disposition home or self-care (01) ==
LOC: LABPAT 13:44
PROVIDERS: ATTEND Family Medicine
DX: E11.621 Type 2 diabetes mellitus with foot ulcer (principal); L97.509 Non-pressure chronic ulcer of other part of unspecified foot with unspecified severity
CPT/HCPCS: 36415; 80048; 85027; 85652; 86140

== ENCOUNTER 2021-09-11 11:35 | Emergency (ER) | payer OTHER ==
[2021-09-11 11:53] VITALS: RESP 18
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
[2021-09-11] MEDS ORDERED: IPRATROPIUM-ALBUTEROL 3 ML NEB INHALATION STA (11:59)
[2021-09-11] MEDS ORDERED: ACETAMINOPHEN TAB 325 MG TAB PO STA (12:01)
--- NOTE | 2021-09-11 12:42 | XR ---
EXAMINATION TYPE: XR chest 2V DATE OF EXAM: 09/11/2021 COMPARISON: 06/04/2018 TECHNIQUE: PA and lateral views submitted. HISTORY: Hypoxia FINDINGS: The lungs are clear and there is no pneumothorax, pleural effusion, or focal pneumonia. Postsurgica l change in the left abdomen. There is a coarsened interstitium. Heart size normal. Hyperinflation. D egenerative change of the spine. IMPRESSION: 1. Correlate for COPD. Interstitial pneumonitis or interstitial lung disease in the differential diag nosis. Venous congestion felt less likely..
--- NOTE | 2021-09-11 12:46 | XR ---
EXAMINATION TYPE: XR knee complete bilateral DATE OF EXAM: 09/11/2021 COMPARISON: NONE HISTORY: Pain TECHNIQUE: Three views of each knee are submitted. FINDINGS: Left knee: Diffuse osteopenia. Sclerotic changes involving the proximal tibia. There also sclerosis involving th e posterior margin of the femur similar from the exam of 2014. Suspect a bone infarct. Hypertrophic s purring along the upper margin of the patella. Narrowing of the medial compartment of the knee joint. Right knee: Diffuse osteopenia. Sclerotic changes involving the proximal tibia. Hypertrophic spurring along the u pper margin of the patella. Narrowing of the medial compartment of the knee joint. IMPRESSION: 1. Diffuse osteopenia with bilateral osteoarthritis. 2. Correlate for left femoral bone infarct. 3. No acute fracture.
[2021-09-11] MEDS ORDERED: SODIUM CHLORIDE 0.9% 500 ML 500 ML IV STA (13:04)
[2021-09-11 13:35] LABS: Anisocytosis Slight; Basophils # (A) 0.1 k/uL (0-0.2); Basophils % (A) 1 %; Eosinophils # (A) 0.3 k/uL (0-0.7); Eosinophils % (A) 2 %; HCT 46.1 % (34.0-46.0); HGB 14.8 gm/dL (11.4-16.0); Hypochromasia Moderate; Lymphocytes # (A) 5.2 k/uL (1.0-4.8); Lymphocytes % (A) 31 %; MCH 27.9 pg (25.0-35.0); MCV 87.2 fL (80.0-100.0); Mean Platelet Volume 9.2; Monocytes # (A) 0.8 k/uL (0-1.0); Monocytes % (A) 5 %; Neutrophils % (A) 60 %; Platelet Count 375 k/uL (150-450); Poikilocytosis Slight; RBC 5.28 m/uL (3.80-5.40); RDW 16.8 % (11.5-15.5); WBC 16.7 k/uL (3.8-10.6)
[2021-09-11 14:36] LABS: ALT 11 U/L (4-34); AST 16 U/L (14-36); African American GFR (CKD) >90 (>60 ml/min/1.73 sqM); Albumin 3.7 g/dL (3.5-5.0); Alkaline Phosphatase 122 U/L (38-126); Anion Gap 6 mmol/L; Blood Urea Nitrogen 6 mg/dL (7-17); Calcium 8.4 mg/dL (8.4-10.2); Carbon Dioxide 29 mmol/L (22-30); Chloride 105 mmol/L (98-107); Glucose 122 mg/dL (74-99); Magnesium 1.9 mg/dL (1.6-2.3); Non-African American GFR(CKD) >90 (>60 ml/min/1.73 sqM); Potassium 3.8 mmol/L (3.5-5.1); Sodium 140 mmol/L (137-145); Total Bilirubin 0.5 mg/dL (0.2-1.3); Total Protein 6.8 g/dL (6.3-8.2)
[2021-09-11 14:38] LABS: Appearance,Urine Clear (Clear); Bilirubin,Urine Negative (Negative); Blood,Urine Negative (Negative); Color,Urine Light Yellow; Glucose,Urine (UA) Negative (Negative); Ketones,Urine Negative (Negative); Leukocyte Esterase,Urine Negative (Negative); Nitrite,Urine Negative (Negative); Protein,Urine Negative (Negative); Specific Gravity,Urine 1.007 (1.001-1.035); Urobilinogen,Urine <2.0 mg/dL (<2.0)
[2021-09-11 16:51] VITALS: BP 170/92; PULSE 80; TEMP 98
== END 2021-09-11 16:55 | disposition home or self-care (01) ==
LOC: EC 11:35
DX: M25.562 Pain in left knee (principal); M25.561 Pain in right knee; J44.9 Chronic obstructive pulmonary disease, unspecified; E11.9 Type 2 diabetes mellitus without complications; K21.9 Gastro-esophageal reflux disease without esophagitis; M79.7 Fibromyalgia; Z88.8 Allergy status to other drugs, medicaments and biological substances; Z86.73 Personal history of transient ischemic attack (TIA), and cerebral infarction without residual deficits; Z88.0 Allergy status to penicillin; Z91.040 Latex allergy status; Z88.5 Allergy status to narcotic agent; Z88.2 Allergy status to sulfonamides; Z79.899 Other long term (current) drug therapy; Z79.82 Long term (current) use of aspirin; Z79.84 Long term (current) use of oral hypoglycemic drugs; Z79.4 Long term (current) use of insulin; W19.XXXA Unspecified fall, initial encounter
CPT/HCPCS: 36415; 71046; 80053; 81003; 83735; 84484; 85025; 93005; 94640; 99284